=== PATIENT | male | born 1990 | race Caucasian/White ===

== ENCOUNTER 2021-10-21 10:43 | Outpatient (REF) | payer OTHER, SELFPAY ==
[2021-10-21 13:46] LABS: MANUAL DIFF FLAG NO
[2021-10-21 13:59] LABS: Basophils Percent Auto 0.4 % (0-2); Eosinophils Absolute Auto 0.1 X10*3/uL (0.0-0.4); Eosinophils Percent Auto 2.4 % (0-4); Hematocrit 45.8 % (42.0-52.0); Hemoglobin 15.4 g/dl (14.0-18.0); Imm Gran Abs Auto 0.01 X10*3/uL (0.00-0.03); Imm Gran Pct Auto 0.2 % (0.0-0.4); Lymphocytes Percent Auto 36.4 % (20-40); Mean Corpuscular HGB Conc 33.6 g/dl (31.0-36.0); Mean Corpuscular Hemoglobin 30.3 pg (27.0-33.0); Mean Corpuscular Volume 90.2 fL (80.0-98.0); Mean Platelet Volume 10.7 fL (9.4-12.4); Monocytes Absolute Auto 0.5 X10*3/uL (0.1-1.2); Monocytes Percent Auto 10.1 % (2-11); Neutrophils Absolute Auto 2.7 x10*3/uL (2.0-8.3); Neutrophils Percent Auto 50.5 % (45-73); Platelet Count 254 X10*3/uL (160-400); Red Blood Count 5.08 X10*6/uL (4.60-5.80); Red Cell Distribution Width 11.7 % (11.0-16.0); White Blood Count 5.4 X10*3/uL (4.8-10.8)
[2021-10-21 14:09] LABS: Appearance Urine CLEAR; Color Urine YELLOW; Glucose Urine UA NEG (NEG); Leukocyte Esterase Urine NEG (NEG); Nitrite Urine NEG (NEG); PH 6.5 (5.0-8.0); Specific Gravity - Urine 1.025 (1.005-1.025); Urine Blood NEG (NEG); Urine Ketones NEG (NEG); Urine Protein NEG (NEG-TRACE)
[2021-10-21 14:29] LABS: Alanine Aminotransferase 25 U/L (0-40); Albumin Level 4.7 g/dL (3.5-5.0); Alkaline Phosphatase 47 U/L (39-117); Anion Gap 11 (12-20); Aspartate Amino Transferase 18 U/L (5-37); Bilirubin Total 0.9 mg/dL (0.0-1.0); C Reactive Protein 0.13 mg/dL (< or = 0.50); Carbon Dioxide 28 mmol/L (22-29); Chloride 105 mmol/L (96-108); Cholesterol 289 mg/dL; Estimated Glomerular Filt Rate > 60; Glucose Fasting 105 mg/dL (60-99); HDL Cholesterol 41 mg/dL; LDL Cholesterol Calculated 220 mg/dl; Potassium 4.6 mmol/L (3.3-5.1); Sodium 139 mmol/L (135-145); Total Protein 7.7 g/dL (6.5-8.0); Triglycerides 141 mg/dL; Vitamin D 25-OH Total 16.1 ng/mL (>30)
[2021-10-21 14:39] LABS: Erythrocyte Sedimentation Rate 4 MM/HR (0-15)
[2021-10-21 15:45] LABS: Blood Urea Nitrogen 14 mg/dL (9-16)
[2021-10-21 23:41] LABS: Vitamin B12 962 pg/mL (200-900)
[2021-10-23 08:56] LABS: Lyme Abs Screen <0.90 index
== END 2021-10-21 10:44 | disposition home or self-care (01) ==
LOC: HO.WFDLDS 10:43
PROVIDERS: Visit Provider Internal Medicine
DX: Z00.00 Encounter for general adult medical examination without abnormal findings (principal); M25.50 Pain in unspecified joint; E55.9 Vitamin D deficiency, unspecified; R20.2 Paresthesia of skin; Z86.19 Personal history of other infectious and parasitic diseases
CPT/HCPCS: 36415; 80053; 80061; 81003; 82306; 82607; 82746; 83735; 84443; 85025; 85652; 86140; 86617; 86618

== ENCOUNTER 2022-07-26 16:13 | Outpatient (AMB) | payer OTHER, SELFPAY ==
[2022-07-26 16:18] VITALS: BP 118/62; PULSE 81; TEMP 36.1; O2SAT 98; BMI 36.1
--- NOTE | 2022-07-26 16:18 | MHC.PC.OV ---
Vital Signs 07/26/22 16:18 Height 6 ft 1 in Weight 274 lb BMI 36.1 BP 118/62 Blood Pressure Location Lt brachial Position Sitting Pulse 81 Pulse Source Pulse Oximeter Temp 97 F Temp Source Skin Pulse Oximetry (%) 98 Oxygen Delivery Method Room Air Intake Visit Reasons: 6M Follow up Intake Note: Patient is here for a 6 month follow up. Hospital Monitor Required: No Accompanied by: Self / Same As Patient Allergies No Known Drug Allergies Allergy (Mild, Verified 02/13/24 10:00) Unknown Medication List - Last Reconciled 07/26/22 by Donald Gtz MD multivitamin (Multiple Vitamins tablet) 1 tab PO DAILY Tobacco use date assessed: 10/13/21 HPI 6M Follow up HPI Details Patient comes in today for his follow up visit States that he has been experiencing recurrent tingling sensation and numbness of a few fingers on both hands for the past few weeks - thinks that he may have carpal tunnel He also frequent loose stools and also reports (+) on and off minimal clear anal discharge at times lately He also has hemorrhoids that he feels have been flaring up recently - has noticed (+) specks of blood in his stool at times He denies any nausea or vomiting, denies any abdominal pain Denies any headaches or dizziness Denies any chest pains, no SOB He is also requesting a referral for allergy testing, as he seems to be developing allergies to things now that never bothered him before Would also like to have Rx for some Multivitamins prescribed for him [facility] Medical History (Updated 02/13/24 @ 10:28 by Donald Gtz MD) Hx of sigmoidoscopy Bilateral carpal tunnel syndrome Vitamin D deficiency Impaired fasting glucose Pure hypercholesterolemia Obesity (BMI 30-39.9) Surgical History Hx of tonsillectomy Family History Mother No problems noted. Father Heart disease Other Substance abuse Social History Housing: Apartment Alcohol intake: never Patient Tobacco Use Status: Former Tobacco user Tobacco use type: Cigarette e-Cigarette/Vaping Use: Never Used Second Hand Smoke Exposure: Yes Substance Use Type: Marijuana service: No Current occupational status: employed Cognitive needs: No Hearing needs: No Vision needs: No Questionnaire Thrive Questionnaire Date Thrive assessed: 10/13/21 JEFFERY-7 AMB Questionnaire JEFFERY-7 Date JEFFERY - 7 assessed: 10/13/21 Source: Developed by Drs. Augusto Olsen, Arianna Cosme, Jhony Nunez and colleagues, with an educational kenneth from [employer]. Review of Systems Const Denies chills, Denies fatigue, Denies fever(s) and Denies headache(s) ENT Denies dysphagia, Denies dizziness, Denies otalgia, Denies headache(s), Denies neck pain, Denies odynophagia and Denies sore throat Card Denies chest pain, Denies rapid heart rate, Denies irregular heart rhythm, Denies palpitations and Denies dyspnea Resp Denies cough, Denies dyspnea and Denies wheezing GI Denies abdominal pain, Denies constipation, Denies dysphagia, Denies heartburn, Reports loose stools (on and off; also (+) clear anal discharge at times), Denies nausea, Denies odynophagia and Denies vomiting Denies difficulty urinating, Denies dysuria and Denies urinary frequency Musc Denies back pain, Denies arthralgias, Denies neck pain, Reports numbness (on and off in both hands) and Reports tingling (on and off in both hands) Skin/Breast Denies rash Neuro Denies dizziness, Denies headache(s), Reports numbness (on and off in both hands), Reports tingling (on and off in both hands) and Reports paresthesias (on and off in both hands) Endo Denies fatigue and Denies palpitations Aller/Immun Denies wheezing Physical exam (Primary Care) Vital Signs: Last Vital Signs Temp 97 F 07/26/22 16:18 Pulse 81 07/26/22 16:18 BP 118/62 07/26/22 16:18 Pulse Ox 98 07/26/22 16:18 Oxygen Delivery Method Room Air 07/26/22 16:18 BMI result Body Mass Index 36.1 Tobacco/Smoking Status: Tobacco use Status Tobacco use date assessed 10/13/21 07/26/22 16:23 Patient Tobacco Use Status Former Tobacco user 07/26/22 16:23 Tobacco use type Cigarette 07/26/22 16:23 Thrive Assessment: Date of Thrive Assessment Date Thrive assessed 10/13/21 07/26/22 16:23 Const General: no acute distress and alert HENMT Ears: TM's normal bilaterally and EAC's normal Throat: Yes posterior oropharynx normal and Yes tonsils normal (no TP congestion) Neck Neck: Yes no lymphadenopathy and Yes supple Thyroid: Thyroid normal Resp Auscultation: clear to auscultation bilaterally, no rales and no wheezes Cardio Rate: regular rate Rhythm: regular rhythm Heart sounds: no murmurs GI Palpation (GI): Soft to palpation and nontender Auscultation: normal bowel sounds General: Yes no CVA tenderness Back/Spine/Pelvis Back: no CVA tenderness Thoracic/Lumbar Spine: thoracic and lumbar spine normal to inspection Skin Rashes: no rashes Extrem General: Yes no clubbing, cyanosis or edema Results Reviewed Results Reviewed: Laboratory Tests 10/21/21 10/21/21 10/21/21 11:00 11:00 11:00 WBC 5.4 Hgb 15.4 Hct 45.8 Plt Count 254 ESR 4 Sodium 139 Potassium 4.6 Creatinine 0.86 Estimated GFR > 60 Fasting Glucose 105 H Calcium 10.0 Magnesium 2.0 AST 18 ALT 25 Triglycerides 141 Cholesterol 289 LDL Cholesterol, Calc 220 HDL Cholesterol 41 Vitamin B12 25-OH Vitamin D Total 16.1 TSH 1.20 Ur Specific [place] Urine Protein Urine Glucose (UA) Urine Blood 10/21/21 10/21/21 11:00 13:40 WBC Hgb Hct Plt Count ESR Sodium Potassium Creatinine Estimated GFR Fasting Glucose Calcium Magnesium AST ALT Triglycerides Cholesterol LDL Cholesterol, Calc HDL Cholesterol Vitamin B12 962 H 25-OH Vitamin D Total TSH Ur Specific [place] 1.025 Urine Protein NEG Urine Glucose (UA) NEG Urine Blood NEG Assessment and Plan Assessment & Plan (1) Paresthesia: Code(s): R20.2 - Paresthesia of skin Plan: Will send patient for EMG and NCV of the upper extremities for further evaluation - suspect that he has CTS bilaterally (2) Pure hypercholesterolemia: Code(s): E78.00 - Pure hypercholesterolemia, unspecified Plan: Patient is reminded that his LDL cholesterol was significantly elevated at 220 mg/dl when last checked a year ago in 10/2021; his total cholesterol was also elevated back then Reinforced low cholesterol diet Will recheck his fasting lipids in 6 months for follow up (3) Impaired fasting glucose: Code(s): R73.01 - Impaired fasting glucose Plan: FBS was slightly elevated at 105 mg/dl on his labs that were last done a year ago Will recheck; will need to check his HgbA1c for further evaluation if his FBS remains elevated (4) Vitamin D deficiency: Code(s): E55.9 - Vitamin D deficiency, unspecified Plan: Advised that his Vitamin D level was low back in 2021; will recheck his Vitamin D level for follow Will need to start on Vitamin D3 supplements daily if his numbers remain low (5) Hemorrhoid: Code(s): K64.9 - Unspecified hemorrhoids Qualifiers: Hemorrhoid type: unspecified Qualified Code(s): K64.9 - Unspecified hemorrhoids Plan: Will refer him to GI for further evaluation and management, especially in light of his recent clear anal discharge (6) Environmental allergies: Code(s): Z91.09 - Other allergy status, other than to drugs and biological substances Plan: Per request, will refer him to allergy and immunology for allergy testing (7) Obesity (BMI 30-39.9): Code(s): E66.9 - Obesity, unspecified Plan: Reinforced diet/exercise as tolerated/lose weight Plan To return in 6 months for his annual physical examination Orders: Orders Comprehensive [place]. Panel Fast 6 Months E78.00 - Pure hypercholesterolemia, unspecified NE electromyogram (EMG) 07/26/22 R20.2 - Paresthesia of skin NE nerve conduction velocity 07/26/22 R20.2 - Paresthesia of skin Lipid Panel 6 Months E78.00 - Pure hypercholesterolemia, unspecified Complete Blood Count Auto Diff 6 Months R20.2 - Paresthesia of skin Referrals Gastroenterology Referral K62.5 - Hemorrhage of anus and rectum Allergy & Immunology Referral Z91.09 - Other allergy status, other than to drugs and biological substances Medications: New multivitamin (Multiple Vitamins tablet) 1 tab PO DAILY Coding Level of Care Code Est Pt Level 4 (33523) Diagnoses Paresthesia R20.2 Pure hypercholesterolemia E78.00 Impaired fasting glucose R73.01 Vitamin D deficiency E55.9 Hemorrhoids, unspecified hemorrhoid type K64.9 Hemorrhoid type: unspecified Environmental allergies Z91.09 Obesity (BMI 30-39.9) E66.9
== END 2022-07-26 17:14 | disposition home or self-care (01) ==
LOC: HO.HMGH 16:13
PROVIDERS: PCP Internal Medicine; Visit Provider Internal Medicine
DX: R20.2 Paresthesia of skin (principal); E78.00 Pure hypercholesterolemia, unspecified; E66.9 Obesity, unspecified; Z68.36 Body mass index [BMI] 36.0-36.9, adult; R73.01 Impaired fasting glucose; E55.9 Vitamin D deficiency, unspecified; K64.9 Unspecified hemorrhoids; Z91.09 Other allergy status, other than to drugs and biological substances
CPT/HCPCS: 99499

== ENCOUNTER 2022-09-23 13:43 | Outpatient (REF) | payer OTHER, SELFPAY ==
--- NOTE | 2022-09-23 08:30 | EMG_ITS ---
Bilateral median and ulnar motor and sensory studies were performed. Bilateral radial sensory studies were performed and paraspinal muscles were tested with a needle. IMPRESSION: Mild bilateral median neuropathy across carpal tunnel. MD SHAYY Mojica/TATO / [id number]
== END 2022-09-23 13:44 | disposition home or self-care (01) ==
LOC: HO.NEURO 13:43
PROVIDERS: PCP Internal Medicine; Visit Provider Internal Medicine
DX: R20.2 Paresthesia of skin (principal)
CPT/HCPCS: 95886; 95911

== ENCOUNTER → 2022-10-06 09:06 | Outpatient (BNVA) | payer OTHER, SELFPAY | PROVIDERS: PCP Internal Medicine; Visit Provider Internal Medicine | DX: K62.5 Hemorrhage of anus and rectum (principal); K64.8 Other hemorrhoids; E66.9 Obesity, unspecified; Z68.37 Body mass index [BMI] 37.0-37.9, adult | CPT/HCPCS: 99202 ==

== ENCOUNTER 2022-11-08 09:03 | Outpatient (REF) | payer OTHER, SELFPAY ==
[2022-11-14 20:00] LABS: Calprotectin, Fecal 11 mcg/g
== END 2022-11-08 09:04 | disposition home or self-care (01) ==
LOC: CF 09:03
PROVIDERS: PCP Internal Medicine; Referring Provider Internal Medicine; Visit Provider Internal Medicine
DX: K62.5 Hemorrhage of anus and rectum (principal); R19.8 Other specified symptoms and signs involving the digestive system and abdomen
CPT/HCPCS: 83993; 99212

== ENCOUNTER 2022-12-02 08:06 | Outpatient (REF) | payer OTHER, SELFPAY ==
--- NOTE | ~2022-12-02 | MR_ITS ---
EXAMINATION: MR PELVIS WITHOUT AND WITH CONTRAST CLINICAL INFORMATION: Anal discharge. Rule out fistula. COMPARISON: None available. TECHNIQUE: Sagittal, axial, and coronal sequences through the pelvis with and without contrast. Patient received 10 mL intravenous Gadavist contrast. FINDINGS: The rectum and anus are normal-appearing. No abscess or fistula is seen. The ischial rectal fat is clear. There is a small area of abnormal signal seen in the subcutaneous fat of the left gluteal fold. This measures 5 mm in maximum dimension, for example axial image 32 series 5 and is of uncertain significance. Visualized small and large bowel is normal. The prostate gland and bladder are normal. No enlarged lymph nodes are seen. No ascites. Small left inguinal hernia containing fat. Probable subchondral cyst in the right superior acetabulum. Bony structures are otherwise normal. MR/MR pelvis wo/w con IMPRESSION: No abscess or fistula seen. Small signal abnormality in the subcutaneous fat of the left gluteal fold measuring maximum 5 mm of uncertain significance.
== END 2022-12-02 08:07 | disposition home or self-care (01) ==
LOC: HO.MRI 08:06
PROVIDERS: PCP Internal Medicine; Visit Provider Internal Medicine
DX: R19.8 Other specified symptoms and signs involving the digestive system and abdomen (principal)
CPT/HCPCS: 72197; A9585

== ENCOUNTER 2023-12-06 10:39 | Day surgery (SDC) | payer OTHER, SELFPAY ==
--- NOTE | 2023-12-05 09:53 | HO.ANESPROP2 ---
Documented by User: Tianna Yi NP 12/14/23 10:37 HPI - Anesthesia Eval Consult details Narrative: 33yo Sigmoidoscopy Flexible PMFSH Active Problems Active Problems: All Active Problems (Updated 02/09/23 @ 11:29 by Donald Gtz MD) Bilateral carpal tunnel syndrome (Acute) Vitamin D deficiency (Acute) Impaired fasting glucose (Acute) Pure hypercholesterolemia (Acute) Skin rash (Acute) Anal discharge (Acute) Hemorrhoid (Acute) Rectal bleeding (Acute) History of Lyme disease (Acute) Obesity (BMI 30-39.9) (Acute) Arthralgia (Acute) Paresthesia (Acute) Annual physical exam (Acute) Past Medical History Medical History (Updated 02/09/23 @ 11:29 by Donald Gtz MD) Bilateral carpal tunnel syndrome Vitamin D deficiency Impaired fasting glucose Pure hypercholesterolemia Obesity (BMI 30-39.9) Family History Family History Mother No problems noted. Father Heart disease Other Substance abuse Surgical History Surgical History Hx of tonsillectomy Social History Social History Housing: Apartment Alcohol intake: never Patient Tobacco Use Status: Former Tobacco user Quit Date: 2018 Tobacco use type: Cigarette e-Cigarette/Vaping Use: Never Used Second Hand Smoke Exposure: Yes Use of substances other than those prescribed or required for medical reasons: Yes Substance Use Type: Marijuana Substance Use Type Other:: last smoked 82912/06/23 - vape Are you DNR?: No Advance Directives: No Advance Directives Information Provided: Yes service: No Current occupational status: employed Cognitive needs: No Hearing needs: No Vision needs: No Meds Allergies Allergy/AdvReac Type Severity Reaction Status Date / Time No Known Drug Allergies Allergy Mild Unknown Verified 02/09/23 10:54 Home Medications ?Medication ?Instructions ?Recorded ?Confirmed ?Last Taken ?Type multivitamin (Multiple Vitamins 1 tab PO DAILY 07/26/22 12/06/23 Unknown History tablet) Assessment and Plan Assessment Anesthesia Assessment: Chart Reviewed Documented by User: Aleksandr Burns MD 01/02/24 12:14 PMFSH Past Medical History Medical History (Updated 02/09/23 @ 11:29 by Donald Gtz MD) Bilateral carpal tunnel syndrome Vitamin D deficiency Impaired fasting glucose Pure hypercholesterolemia Obesity (BMI 30-39.9) Family History Family History Mother No problems noted. Father Heart disease Other Substance abuse Family history of problems with anesthesia: No Surgical History Surgical History Hx of tonsillectomy History of Problems with Anesthesia: No Social History Social History Housing: Apartment Alcohol intake: never Patient Tobacco Use Status: Former Tobacco user Quit Date: 2018 Tobacco use type: Cigarette e-Cigarette/Vaping Use: Never Used Second Hand Smoke Exposure: Yes Use of substances other than those prescribed or required for medical reasons: Yes Substance Use Type: Marijuana Substance Use Type Other:: last smoked 82912/06/23 - vape Are you DNR?: No Advance Directives: No Advance Directives Information Provided: Yes service: No Current occupational status: employed Cognitive needs: No Hearing needs: No Vision needs: No Meds Allergies Allergy/AdvReac Type Severity Reaction Status Date / Time No Known Drug Allergies Allergy Mild Unknown Verified 02/09/23 10:54 Home Medications ?Medication ?Instructions ?Recorded ?Confirmed ?Last Taken ?Type multivitamin (Multiple Vitamins 1 tab PO DAILY 07/26/22 12/06/23 Unknown History tablet) Exam Airway TM Dist: >3cm Neck ROM: Full Assessment and Plan Assessment Anesthesia Assessment: Anesthesia Plan Discussed Final Anesthetic Review Family History of Problems with Anesthesia: No History of Problems with Anesthesia: No NPO: Yes ASA Class: II Final Preanesthetic Review: No Changes in Pt Med Stat, Meds/Allgs Chart Reviewed, Consent Obtained/Reviewed and Anes Risks/Benef Reviewed Patient Risk: Low Procedure Risk: Low Anesthetic Plan Anesthetic Plan: MAC: Disposition: Standard PACU
[2023-12-06 10:55] VITALS: BMI 36.3
[2023-12-06 11:02] VITALS: BP 158/83; PULSE 85; RESP 18; TEMP 36.7; O2SAT 97
[2023-12-06] MEDS: Lactated Ringers 1,000 ML 100 ML IVCONT (11:28)
[2023-12-06] MEDS: Sodium Phosphate,Mono-Dibasic 133 ML ENEMA PR (11:51)
--- NOTE | 2023-12-06 12:03 | MHC.SHP ---
Pre-Procedural Eval Section A - 24 Hr Update-Section A only Date of Service: 12/06/23 Section B - Complete if H&P > 30 days Chief Complaint: Other specified symptoms and signs involving the d Details of Present Illness: Obesity (BMI 30-39.9) Surgical History Hx of tonsillectomy Relevant Family History (Specify if Yes): No Present Medications: see Short Stay Collaborative assessment Allergies: Allergies Allergy/AdvReac Type Severity Reaction Status Date / Time No Known Drug Allergies Allergy Mild Unknown Verified 02/09/23 10:54 Review of Systems Review of Systems Comment: 10 point ROS negative except as above Exam Exam Comment: Gen appear: No acute distress HEENT: no icterus Chest: No overt resp distress Abd: soft, nontender, nondistended Psych: Stable affect, answering questions appropriately Neuro: A/Ox3 noted to move all extremities spontaneously Ext: no peripheral edema Plan Diagnosis/Plan: Unchanged I have reviewed the history and physical and performed a pertinent physical examination on my patient. No changes have occurred unless specified. Time Spent With Patient Time: Total time managing care of this patient today ____ minutes.
[2023-12-06 12:40] VITALS: BP 118/61; PULSE 68; RESP 20; TEMP 36.6; O2SAT 98
--- NOTE | 2023-12-06 12:41 | P.OP_ITS ---
Operative Note Operative Note Date of Service: 12/06/23 Narrative: Procedure: Flexible sigmoidoscopy Indication: Anal discharge and rectal bleeding Endoscopist: Tanika Bennett MD Anesthesia Provider: Dr Burns Anesthesia type: MAC Instrument: Olympus [id number] Consent: Indication, risks vs benefits, and alternatives were discussed with the patient who gave written informed consent to proceed. EKG, pulse, pulse oximetry and blood pressure were monitored throughout the procedure. Please see anesthesia flowsheet. Procedure: The patient was brought to the procedure room and placed in the left lateral decubitus position. IV medications were administered by the anesthesia provider in attendance. A digital rectal exam was performed which was abnormal due to finding of hemorrhoids. The gastroscope was then inserted through the anus and advanced through the colon to the splenic flexure at 50 cm. Mucosa was carefully examined under high definition white light as the instrument was slowly withdrawn in a retrograde panoramic fashion. Retroflexion was performed in rectum however significant stool was noted in anorectum. The procedure was not difficult. There were no immediate obvious complications. The quality of the prep was poor. Limitations: No limitations. Findings: Mucosa: Solid and semi solid stool present throughout colon. Considerable residue remained despite flushing however underlying mucosa appeared normal to the extent visualised. Protruding lesions: * Medium internal hemorrhoids without stigmata of recent bleeding. Impression: 1. Poor prep 2. Hemorrhoids Recommendations: - No evidence of colitis or proctitis. - Pt reports resolution of anal discharge and bleeding however if this recurs, can be referred for dedicated anoscopy. - Increase fiber intake, avoid constipation and straining.
[2023-12-06 12:55] VITALS: BP 119/65; PULSE 64; RESP 16; TEMP 36.6; O2SAT 98
== END 2023-12-06 14:02 | disposition home or self-care (01) ==
PROVIDERS: PCP Internal Medicine; Visit Provider Internal Medicine
PROC: 0DJD8ZZ Inspection of Lower Intestinal Tract, Via Natural or Artificial Opening Endoscopic (ICD-10-PCS; CPT 45330; principal; 2023-12-06 12:20)
DX: K62.5 Hemorrhage of anus and rectum (principal); K64.8 Other hemorrhoids; R21 Rash and other nonspecific skin eruption; E66.9 Obesity, unspecified; Z68.37 Body mass index [BMI] 37.0-37.9, adult; Z87.891 Personal history of nicotine dependence
CPT/HCPCS: 45330; J2704

== ENCOUNTER → 2023-12-06 10:39 | Outpatient (BNV) | payer OTHER, SELFPAY | PROVIDERS: PCP Internal Medicine; Visit Provider Internal Medicine | DX: K62.5 Hemorrhage of anus and rectum (principal); R19.8 Other specified symptoms and signs involving the digestive system and abdomen; K64.8 Other hemorrhoids; Z91.199 Patient's noncompliance with other medical treatment and regimen due to unspecified reason | CPT/HCPCS: 45330 ==

== ENCOUNTER 2024-02-13 09:31 | Outpatient (AMB) | payer OTHER, SELFPAY ==
--- NOTE | 2024-02-13 09:33 | MHC.PC.OV ---
Vital Signs 02/13/24 09:35 Height 6 ft 1 in Weight 289 lb BMI 38.1 BP 130/72 Blood Pressure Location Lt brachial Position Sitting Pulse 68 Pulse Source Pulse Oximeter Pulse Oximetry (%) 99 Oxygen Delivery Method Room Air Intake Visit Reasons: Annual exam Intake Note: Patient is here today for a physical. Film Or Tape Librarian Required: No Research Group Director: Not Required per policy Accompanied by: Self / Same As Patient Allergies No Known Drug Allergies Allergy (Mild, Verified 02/13/24 10:00) Unknown Medication List - Last Reconciled 02/13/24 by Donald Gtz MD multivitamin (Multiple Vitamins tablet) 1 tab PO DAILY Tobacco use date assessed: 02/13/24 Dental Screening Dental Screen Date: 02/13/24 Did you have a dental visit in the last 12 months?: Yes Did you have a dental problem in the last 6 months where you did not have access to dental care?: No Was dental information given to patient?: Patient has dentist HPI Annual exam HPI Details Patient comes in today for his annual physical examination States that he feels okay He denies any headaches or dizziness Denies any chest pains, no SOB No nausea/vomiting, no abdominal pain No change in bowel habits noted Had sigmoidoscopy done back in November 2023 - procedure was suboptimal due to poor prep but he did not appear to have any evidence of colitis or proctitis; (+) internal hemorrhoids He denies any acute urinary symptoms PFSH Medical History (Updated 02/13/24 @ 10:03 by Donald Gtz MD) Hx of sigmoidoscopy Bilateral carpal tunnel syndrome Vitamin D deficiency Impaired fasting glucose Pure hypercholesterolemia Obesity (BMI 30-39.9) Surgical History Hx of tonsillectomy Family History Mother No problems noted. Father Heart disease Other Substance abuse Social History Housing: Apartment Alcohol intake: never Patient Tobacco Use Status: Former Tobacco user Tobacco use type: Cigarette e-Cigarette/Vaping Use: Never Used Second Hand Smoke Exposure: Yes Substance Use Type: Marijuana service: No Current occupational status: employed Cognitive needs: No Hearing needs: No Vision needs: No Questionnaire PHQ-9 Over the last 2 weeks, how often have you been bothered by any of the following problems? 1. Little interest or pleasure in doing things: not at all 2. Feeling down, depressed, or hopeless: not at all 3. Trouble falling or staying asleep, or sleeping too much: not at all 4. Feeling tired or having little energy: not at all 5. Poor appetite or overeating: not at all 6. Feeling bad about yourself - or that you are a failure or have let yourself or your family down: not at all 7. Trouble concentrating on things, such as reading the newspaper or watching television: not at all 8. Moving or speaking so slowly that other people could have noticed. Or the opposite - being so fidgety or restless that you have been moving around a lot more than usual: not at all 9. Thoughts that you would be better off or of hurting yourself in some way: not at all Total score: 0 Depression Screening Interpretation: Negative Depression Screening Done: Yes 67692 - PHQ-9 Billing: Yes Source: Developed by Drs. Augusto Olsen, Arianna Cosme, Jhony Nunez and colleagues, with an educational kenneth from [employer]. Thrive Questionnaire Date Thrive assessed: 02/13/24 I am a: Patient What is your living situation today?: I have a steady place to live Within the past 12 months, did the food you bought not last and you didn't have the money to get more?: Never true Within the past 12 months, did you worry whether your food would run out before you got money to buy more?: Never true Do you have trouble paying for medicines?: No Do you have trouble getting transportation to medical appointments?: No Do you have trouble paying your heating and electricity bill?: No Do you have trouble taking care of your child, family member or friend?: No Do you have trouble with day-to-day activities such as bathing, preparing meals, shopping, managing finances, etc.?: No Are you currently unemployed and looking for a job?: No Are you interested in more education?: No Currently or been in a relationship where the following occur: no concerns reported THRIVE Score: 0 AUDIT C Alcohol Use Questionnaire (AUDIT-C) 1. How often do you have a drink containing alcohol?: Never 3. How often do you have six or more drinks on one occasion?: Never Total Score: 0 Score Reviewed/Action Taken: Yes JEFFERY-7 AMB Questionnaire JEFFERY-7 Date JEFFERY - 7 assessed: 02/13/24 Feeling nervous, anxious, or on edge: 0 = Not at all Not being able to stop or control worryin = Not at all Worrying too much about different things: 0 = Not at all Trouble relaxin = Not at all Being so restless that it is hard to sit still: 0 = Not at all Becoming easily annoyed or irritable: 0 = Not at all Feeling afraid as if something awful might happen: 0 = Not at all Total JEFFERY-7 score (0-4 normal; 5-9 mild; 10-14 moderate; 15-21 severe): 0 Source: Developed by Drs. Augusto Olsen, Arianna Cosme, Jhony Nunez and colleagues, with an educational kenneth from [employer]. Review of Systems Const Denies chills, Denies fatigue, Denies fever(s), Denies headache(s), Denies malaise and Denies weakness Eyes Denies blurry vision, Denies change in vision, Denies irritation and Denies itchy eyes ENT Denies dysphagia, Denies dizziness, Denies otalgia, Denies headache(s), Denies nasal congestion, Denies neck pain, Denies odynophagia and Denies sore throat Card Denies chest pain, Denies rapid heart rate, Denies irregular heart rhythm, Denies palpitations and Denies dyspnea Resp Denies chest congestion, Denies cough, Denies dyspnea and Denies wheezing GI Denies abdominal pain, Denies bloating, Denies constipation, Denies dysphagia, Denies heartburn, Denies diarrhea, Denies loose stools (resolved), Denies nausea, Denies odynophagia and Denies vomiting Denies hematuria, Denies difficulty urinating, Denies dysuria, Denies urinary frequency and Denies urinary urgency Musc Denies back pain, Denies arthralgias, Denies joint swelling, Denies muscle weakness and Denies neck pain Skin/Breast Denies change in pigmentation, Denies lesions, Denies rash and Denies unusual bruising Neuro Denies dizziness, Denies headache(s), Denies paresthesias and Denies weakness Endo Denies fatigue and Denies palpitations Aller/Immun Denies itchy eyes and Denies wheezing Physical exam (Primary Care) Vital Signs: Last Vital Signs Pulse 68 02/13/24 09:35 BP 130/72 02/13/24 09:35 Pulse Ox 99 02/13/24 09:35 Oxygen Delivery Method Room Air 02/13/24 09:35 BMI result Body Mass Index 38.1 Tobacco/Smoking Status: Tobacco use Status Tobacco use date assessed 02/13/24 02/13/24 09:39 Patient Tobacco Use Status Former Tobacco user 02/13/24 09:39 Tobacco use type Cigarette 02/13/24 09:39 e-Cigarette/Vaping Use Never Used 02/13/24 09:39 PHQ-9: PHQ-9 Score PHQ-9: Total score 0 02/13/24 09:39 Depression Screening Interpretation: Negative Thrive Assessment: Date of Thrive Assessment Date Thrive assessed 02/13/24 02/13/24 09:39 Currently or been in a relationship where the following occur: no concerns reported Const General: no acute distress, alert and awake Orientation/consciousness: patient oriented x3 HENMT Head: Yes normocephalic and Yes atraumatic Ears: external ears normal, TM's normal bilaterally and EAC's normal General nose exam: No nasal discharge present Face and sinus: Yes normal facial exam and Yes sinuses nontender Teeth and gingiva: dentition normal Throat: Yes posterior oropharynx normal and Yes tonsils normal (no TP congestion) Eyes Eyelids: Yes eyelids normal Conjunctivae: conjunctivae normal Pupils: Equal, round and reactive pupils present EOM: EOMs intact bilaterally Neck Neck: Yes no lymphadenopathy and Yes supple Thyroid: Thyroid normal Resp Auscultation: clear to auscultation bilaterally, no rales and no wheezes Cardio Rate: regular rate Rhythm: regular rhythm Heart sounds: no murmurs GI Palpation (GI): Soft to palpation, nontender and No hepatosplenomegaly present Auscultation: normal bowel sounds General: Yes no CVA tenderness Back/Spine/Pelvis Back: no CVA tenderness Thoracic/Lumbar Spine: thoracic and lumbar spine normal to inspection Skin Lesions: no lesions Rashes: no rashes Neuro General: patient oriented x3, moves all extremities, no focal motor deficits and CN's II-XI intact bilaterally Cranial nerves: Yes Equal, round and reactive pupils present Cognition (Neuro): normal cognition Gait exam (Neuro): Normal gait present Extrem General: Yes no clubbing, cyanosis or edema Assessment and Plan Assessment & Plan (1) Annual physical exam: Code(s): Z00.00 - Encounter for general adult medical examination without abnormal findings Plan: Check labs (2) Pure hypercholesterolemia: Code(s): E78.00 - Pure hypercholesterolemia, unspecified Plan: Patient is reminded that his LDL cholesterol was significantly elevated at 220 mg/dl when last checked in 2021; his total cholesterol was also elevated back then Reinforced low cholesterol diet Will recheck his fasting lipids CEFERINO for follow up (3) Impaired fasting glucose: Code(s): R73.01 - Impaired fasting glucose Plan: FBS was slightly elevated at 105 mg/dl on his labs that were last done a couple of years ago Will recheck; will also check his HgbA1c for further evaluation (4) Vitamin D deficiency: Code(s): E55.9 - Vitamin D deficiency, unspecified Plan: Advised that his Vitamin D level was low back in 2021; will recheck his Vitamin D level for follow Will need to start on Vitamin D3 supplements daily if his numbers remain low (5) Bilateral carpal tunnel syndrome: Code(s): G56.03 - Carpal tunnel syndrome, bilateral upper limbs Plan: EMG & NCV done in September 2022 revealed (+) mild bilateral median neuropathy He is again advised to continue wearing his wrist splints at night to help minimize his symptoms; wearing his splints/braces during the day might prove more difficult because of 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) He is instructed to call if he feels that his hand symptoms are progressing or getting worse (6) Hemorrhoid: Code(s): K64.9 - Unspecified hemorrhoids Qualifiers: Hemorrhoid type: unspecified Qualified Code(s): K64.9 - Unspecified hemorrhoids Plan: He has internal hemorrhoids based on exam done by GI, confirmed on his sigmoidoscopy done in November 2023 His recent sigmoidoscopy also ruled out any evidence of colitis or proctitis States that they are currently controlled as his bowel movements have been better regulated Follow up with GI as scheduled (7) Obesity (BMI 30-39.9): Code(s): E66.9 - Obesity, unspecified Plan: Reinforced diet/exercise as tolerated/lose weight Plan To return in 1 year for his next annual physical examination Orders: Orders Lipid Panel Today E78.00 - Pure hypercholesterolemia, unspecified, Z00.00 - Encounter for general adult medical examination without abnormal findings TSH reflex Free T4 Today E78.00 - Pure hypercholesterolemia, unspecified, Z00.00 - Encounter for general adult medical examination without abnormal findings Complete Blood Count Auto Diff Today D64.9 - Anemia, unspecified, Z00.00 - Encounter for general adult medical examination without abnormal findings Comprehensive [place]. Panel Fast Today E78.00 - Pure hypercholesterolemia, unspecified, Z00.00 - Encounter for general adult medical examination without abnormal findings UA CC w/rflx Micro + Cult Today R30.0 - Dysuria, Z00.00 - Encounter for general adult medical examination without abnormal findings Vitamin D 25-OH Total Today E55.9 - Vitamin D deficiency, unspecified, Z00.00 - Encounter for general adult medical examination without abnormal findings Hemoglobin A1c Today R73.01 - Impaired fasting glucose, Z00.00 - Encounter for general adult medical examination without abnormal findings Coding Level of Care Code Est Pt Prev Care 18-39y(57314) Diagnoses Annual physical exam Z00.00 Pure hypercholesterolemia E78.00 Impaired fasting glucose R73.01 Vitamin D deficiency E55.9 Bilateral carpal tunnel syndrome G56.03 Hemorrhoids, unspecified hemorrhoid type K64.9 Hemorrhoid type: unspecified Obesity (BMI 30-39.9) E66.9
[2024-02-13 09:35] VITALS: BP 130/72; PULSE 68; O2SAT 99; BMI 38.1
== END 2024-02-13 10:12 | disposition home or self-care (01) ==
PROVIDERS: PCP Internal Medicine; Visit Provider Internal Medicine
DX: Z00.00 Encounter for general adult medical examination without abnormal findings (principal); E78.00 Pure hypercholesterolemia, unspecified; R73.01 Impaired fasting glucose; E55.9 Vitamin D deficiency, unspecified; G56.03 Carpal tunnel syndrome, bilateral upper limbs; K64.9 Unspecified hemorrhoids
CPT/HCPCS: 99395

== ENCOUNTER 2024-02-13 10:15 | Outpatient (REF) | payer OTHER, SELFPAY ==
[2024-02-13 10:57] LABS: Appearance Urine Clear; Color Urine Yellow; Glucose Urine UA Negative (Negative); Leukocyte Esterase Urine Trace (Negative); Nitrite Urine Negative (Negative); Specific Gravity - Urine 1.025 (1.005-1.025); UMIC TRIGGER UACC YES; Urine Blood Negative (Negative); Urine Ketones Negative (Negative); Urine Protein Negative (Neg-Trace)
[2024-02-13 11:01] LABS: MANUAL DIFF FLAG NO
[2024-02-13 11:02] LABS: Bacteria Urine None Seen (None Seen); Hyaline Casts Urine 0-2 /LPF (0-2); RBC Urine 0-2 /HPF (0-2); Squamous Epithelial Cell Urine 0-2 /HPF (0-2); WBC Urine 0-5 /HPF (0-5)
[2024-02-13 11:17] LABS: Estimated Average Glucose 105 mg/dL; Hemoglobin A1c % 5.3 % (<6.0)
[2024-02-13 11:32] LABS: Alanine Aminotransferase 56 U/L (0-40); Albumin Level 4.5 g/dL (3.5-5.0); Alkaline Phosphatase 35 U/L (39-117); Anion Gap 12 (12-20); Aspartate Amino Transferase 29 U/L (5-37); Bilirubin Total 0.6 mg/dL (0.0-1.0); Blood Urea Nitrogen 13 mg/dL (9-16); Calcium 9.4 mg/dL (8.4-10.2); Carbon Dioxide 23 mmol/L (22-29); Chloride 107 mmol/L (96-108); Cholesterol 280 mg/dL (<200); Estimated Glomerular Filt Rate > 60; Glucose Fasting 107 mg/dL (60-99); HDL Cholesterol 43 mg/dL (>40); LDL Cholesterol Calculated 211 mg/dL (<100); Potassium 4.2 mmol/L (3.3-5.1); Sodium 138 mmol/L (135-145); Total Protein 7.2 g/dL (6.5-8.0); Triglycerides 131 mg/dL (<150)
[2024-02-13 11:33] LABS: TSH reflex Free T4 1.04 uIU/mL (0.32-4.0); Vitamin D 25-OH Total 28.9 ng/mL (>30)
[2024-02-13 11:34] LABS: Basophils Percent Auto 0.4 % (0-2); Eosinophils Absolute Auto 0.1 X10*3/uL (0.0-0.4); Eosinophils Percent Auto 1.3 % (0-4); Hemoglobin 14.7 g/dl (14.0-18.0); Imm Gran Abs Auto 0.01 X10*3/uL (0.00-0.03); Imm Gran Pct Auto 0.2 % (0.0-0.4); Lymphocytes Absolute Auto 1.5 X10*3/uL (1.2-4.9); Lymphocytes Percent Auto 31.4 % (20-40); Mean Corpuscular HGB Conc 34.2 g/dl (31.0-36.0); Mean Corpuscular Hemoglobin 30.4 pg (27.0-33.0); Mean Platelet Volume 9.8 fL (9.4-12.4); Monocytes Absolute Auto 0.6 X10*3/uL (0.1-1.2); Neutrophils Absolute Auto 2.5 x10*3/uL (2.0-8.3); Neutrophils Percent Auto 54.7 % (45-73); Platelet Count 233 X10*3/uL (160-400); Red Blood Count 4.83 X10*6/uL (4.60-5.80); Red Cell Distribution Width 11.9 % (11.0-16.0); White Blood Count 4.7 X10*3/uL (4.8-10.8)
== END 2024-02-13 10:16 | disposition home or self-care (01) ==
LOC: HO.10HDL 10:15
PROVIDERS: Visit Provider Internal Medicine
DX: Z00.00 Encounter for general adult medical examination without abnormal findings (principal); D64.9 Anemia, unspecified; E78.00 Pure hypercholesterolemia, unspecified; E55.9 Vitamin D deficiency, unspecified; R73.01 Impaired fasting glucose
CPT/HCPCS: 36415; 80053; 80061; 81001; 82306; 83036; 84443; 85025

== ENCOUNTER 2025-07-22 14:17 | Outpatient (AMB) | payer OTHER, SELFPAY ==
--- NOTE | 2025-07-22 14:26 | A.OFFVIS_ITS ---
Vital Signs 07/22/25 14:28 Height 6 ft 1 in Weight 291 lb 0.163 oz BMI 38.4 BP 128/78 Blood Pressure Location Lt brachial Position Sitting Pulse 70 Intake Visit Reasons: abd pain Intake Note: Baljeet presents in the office for abdominal pains. CC: States that he has discomfort - it happens at night. Goes to bed and wakes up to a skin crawling feeling. It ends up becoming vomiting, shaking, chills. Other nights it is indigestion and feels like it is in the kidney region. No constipation - it started off with different colored stools and he has discomfort when he has a BM but not difficult to go. Soap Grinder Required: No Allergies No Known Drug Allergies Allergy (Mild, Verified 07/22/25 14:29) Unknown HPI Comments Details: 32 y.o M with no significant PMH who is here for occasional blood on wiping. 10/06/22: Started noticing this around 3 months ago in Jun, when he started feeling some swelling around his anal orifice at the time of BM which is non tender. Associated with occasional blood on wiping. BMs are typically hard and most of the times has to strain although trying to minimize this to avoid aggravating what he thinks is a hemorrhoid. Has also started metamucil 1tsp daily which he thinks is helping a bit. Does not lift any heavy weights but does play lacrosse twice a week and tells me that does tend to engage his abdominal muscles quite a bit. No hx of anal trauma or intercourse. No fam hx of CRC or IBD. 11/08/22: Reports resolution of discomfort and rectal bleeding. Does not strain much with MiraLax. However, for the past few weeks, has also been noticing spontaneous discharge. He is unable to discern whether this is from anal orifice or perianal. Discharge is not fecal. Happens mostly during a workout. Incidentally noted on chart review was referral for allergy and immunology. Patient states that this was placed as he has been noticing skin rashes often. 07/22/25: REports sudden onset of abd pain in epigastrium assoc with vomiting almost 8h after dinner. Occured only once a week but wasnt able to figure out what triggered it. Pt does intermittent fasting, only eats dinner around 6pm. No blood in vomiting. Lost may be 2 lbs because of this. Started almost a month ago. Since then only doing liquids like soups, pedialyte etc. Now has not had any recurrence since 2 weeks. However BMs are not consistent range from tino to mushy. Pt also reports eating raw sushi frequently. [facility] Medical History Hx of sigmoidoscopy Bilateral carpal tunnel syndrome Vitamin D deficiency Impaired fasting glucose Pure hypercholesterolemia Obesity (BMI 30-39.9) Surgical History Hx of tonsillectomy Family History (Updated 07/22/25 @ 14:30 by CATHERINE Mccloud) Mother No problems noted. Father Heart disease Maternal Aunt Pancreatic cancer Other Substance abuse Social History Housing: Apartment Alcohol intake: never Patient Tobacco Use Status: Former Tobacco user Tobacco use type: Cigarette e-Cigarette/Vaping Use: Never Used Second Hand Smoke Exposure: Yes Substance Use Type: Marijuana service: No Current occupational status: employed Cognitive needs: No Hearing needs: No Vision needs: No Review of Systems Const All systems reviewed & are unremarkable except as noted in HPI and below Physical Exam Exam Exam: No apparent distress Nonicteric Abdomen soft, nondistended Alert and oriented x3, normal gait Vital Signs: Last Vital Signs Pulse 70 07/22/25 14:28 BP 128/78 07/22/25 14:28 BMI result Body Mass Index 38.4 Assessment & Plan Assessment & Plan (1) Postprandial abdominal pain in right upper quadrant: Code(s): R10.11 - Right upper quadrant pain Category: Medical (2) Nausea & vomiting: Code(s): R11.2 - Nausea with vomiting, unspecified Category: Medical Plan Ddx include symptomatic gallstones, PUD, gastroparesis, parasitic infection. Plan: - Labs as below - US Abd - Pt advised against consumption of raw meat/seafood - Low fat, low residue diet Close follow up 6 weeks to determine further eval including EGD Orders: Orders US abdomen complete Today R10.11 - Right upper quadrant pain Ova and Parasite 07/24/25 R10.11 - Right upper quadrant pain Liver Panel Today R10.11 - Right upper quadrant pain Complete Blood Count no Diff Today R10.11 - Right upper quadrant pain Ova and Parasite Today R10.11 - Right upper quadrant pain Ova and Parasite 07/23/25 R10.11 - Right upper quadrant pain Coding Level of Care Code Est Pt Level 4 (79110) Diagnoses Postprandial abdominal pain in right upper quadrant R10.11 Nausea & vomiting R11.2
[2025-07-22 14:28] VITALS: BP 128/78; PULSE 70; BMI 38.4
== END 2025-07-22 15:09 | disposition home or self-care (01) ==
LOC: HO.HGI 14:18
PROVIDERS: PCP Internal Medicine; Visit Provider Internal Medicine
DX: R10.11 Right upper quadrant pain (principal); R11.2 Nausea with vomiting, unspecified
CPT/HCPCS: 99214

== ENCOUNTER → 2025-07-22 14:17 | Outpatient (BNVA) | payer OTHER, SELFPAY | PROVIDERS: PCP Internal Medicine; Visit Provider Internal Medicine | DX: R10.11 Right upper quadrant pain (principal); R11.2 Nausea with vomiting, unspecified | CPT/HCPCS: 99212 ==